=== PATIENT | female | born 1960 | race Caucasian/White ===

== ENCOUNTER 2017-06-16 14:59 | Observation (INO) | payer BC ==
[2017-06-16] MEDS ORDERED: ZOFRAN INJ 4 MG VIAL IVP PRN (15:28)
[2017-06-16 17:02] LABS: BASOPHILS # (AUTO) 0.1 X10^3/uL (0.0-0.1); BASOPHILS % (AUTO) 1.1 % (0.2-1.0); EOSINOPHILS # (AUTO) 0.1 x10^3/uL (0.0-0.2); EOSINOPHILS % (AUTO) 1.7 % (0.9-2.9); HEMATOCRIT 39.8 % (36.0-47.0); HEMOGLOBIN 13.4 g/dL (12.0-16.0); LYMPHOCYTES # (AUTO) 2.2 X10^3/uL (1.3-2.9); LYMPHOCYTES % (AUTO) 27.3 % (21.0-51.0); MEAN CORPUSCULAR HEMOGLOBIN 28.8 pg (27.0-34.0); MEAN CORPUSCULAR HGB CONC 33.7 g/dL (33.0-35.0); MEAN CORPUSCULAR VOLUME 85.5 fL (80.0-100.0); MEAN PLATELET VOLUME 9.7 fL (7.4-11.0); MONOCYTES # (AUTO) 0.4 x10^3/uL (0.3-0.8); MONOCYTES % (AUTO) 4.7 % (0.0-13.0); NEUTROPHILS # (AUTO) 5.3 x10^3/uL (2.2-4.8); NEUTROPHILS % (AUTO) 65.2 % (42.0-75.0); PLATELET COUNT 190 X10^3/uL (150.0-450.0); RED BLOOD COUNT 4.66 X10^6/uL (3.5-5.4); RED CELL DISTRIBUTION WIDTH 13.4 % (11.6-16.5); WHITE BLOOD COUNT 8.2 X10^3/uL (3.6-10.0)
[2017-06-16 17:11] LABS: ALANINE AMINOTRANSFERASE 27 Units/L (12-78); ALBUMIN 3.6 g/dL (3.4-5.0); ALKALINE PHOSPHATASE 171 Units/L (46-116); AMYLASE 35 Units/L (25-115); ASPARTATE AMINO TRANSFERASE 26 Units/L (15-37); BLOOD UREA NITROGEN 10 mg/dL (7-18); CALCIUM 9.3 mg/dL (8.5-10.1); CARBON DIOXIDE 31.4 mmol/L (21-32); CHLORIDE 102 mmol/L (98-107); COR NA(FOR HYPERGLY) 143 mmol/L (136-145); CREATININE 0.76 mg/dL (0.55-1.02); LIPASE 604 Units/L (73-393); SODIUM 142 mmol/L (136-145); TOTAL PROTEIN 7.7 g/dL (6.4-8.2); eGFR BLACK RACES > 60 (>60); eGFR NON BLACK RACES > 60 (>60)
[2017-06-16 17:14] LABS: BILIRUBIN,URINE NEGATIVE (NEGATIVE); BLOOD/HEMOGLOBIN,URINE NEGATIVE (NEGATIVE); GLUCOSE, URINE NEGATIVE (NEGATIVE); KETONES,URINE 2+ (NEGATIVE); LEUKOCYTE ESTERASE ,URINE NEGATIVE (NEGATIVE); NITRITES,URINE NEGATIVE (NEGATIVE); PROTEIN,URINE NEGATIVE (NEGATIVE); UROBILINOGEN,URINE NORMAL (NORMAL)
[2017-06-16 17:18] LABS: APPEARANCE,URINE SLIGHTLY HAZY (CLEAR); COLOR,URINE YELLOW (YELLOW)
[2017-06-16 17:21] LABS: BACTERIA,URINE NEGATIVE /HPF (NEGATIVE); SQUAMOUS EPITHELIAL CELL,UR FEW /HPF (NEGATIVE)
[2017-06-16] MEDS ORDERED: K-LYTE EFFERVESCENT PO PRN (17:41)
[2017-06-16] MEDS ORDERED: POTASSIUM CHLORIDE LIQ 20 MEQ UDC PO PRN (17:41)
[2017-06-16] MEDS ORDERED: K-RIDER 10 MEQ/NS 100 ML 10 MEQ/100 ML BAG IV PRN (17:41)
[2017-06-16] MEDS: PROTONIX INJ 40 MG VIAL IVP SCH ×2 (17:49→20:54)
[2017-06-16] MEDS: NS 1000 ML 1,000 ML IV SCH (17:49)
[2017-06-16 18:35] VITALS: BMI 34.0
[2017-06-17 05:43] LABS: ALANINE AMINOTRANSFERASE 22 Units/L (12-78); ALKALINE PHOSPHATASE 145 Units/L (46-116); ASPARTATE AMINO TRANSFERASE 23 Units/L (15-37); BLOOD UREA NITROGEN 10 mg/dL (7-18); CALCIUM 8.8 mg/dL (8.5-10.1); CARBON DIOXIDE 29.1 mmol/L (21-32); CHLORIDE 104 mmol/L (98-107); COR CA(FOR HYPOALB) 9.6 mg/dL (8.5-10.1); COR NA(FOR HYPERGLY) 143 mmol/L (136-145); CREATININE 0.71 mg/dL (0.55-1.02); MAGNESIUM 1.9 mg/dL (1.7-2.9); SODIUM 141 mmol/L (136-145); TOTAL PROTEIN 6.6 g/dL (6.4-8.2); eGFR BLACK RACES > 60 (>60); eGFR NON BLACK RACES > 60 (>60)
[2017-06-17] MEDS: NS 1000 ML 1,000 ML IV SCH (05:58)
[2017-06-17 05:59] LABS: BASOPHILS # (AUTO) 0.1 X10^3/uL (0.0-0.1); BASOPHILS % (AUTO) 0.9 % (0.2-1.0); EOSINOPHILS # (AUTO) 0.1 x10^3/uL (0.0-0.2); EOSINOPHILS % (AUTO) 2.4 % (0.9-2.9); HEMATOCRIT 36.7 % (36.0-47.0); HEMOGLOBIN 12.2 g/dL (12.0-16.0); LYMPHOCYTES # (AUTO) 1.8 X10^3/uL (1.3-2.9); LYMPHOCYTES % (AUTO) 30.8 % (21.0-51.0); MEAN CORPUSCULAR HEMOGLOBIN 28.8 pg (27.0-34.0); MEAN CORPUSCULAR HGB CONC 33.1 g/dL (33.0-35.0); MEAN CORPUSCULAR VOLUME 87.1 fL (80.0-100.0); MEAN PLATELET VOLUME 9.8 fL (7.4-11.0); MONOCYTES # (AUTO) 0.4 x10^3/uL (0.3-0.8); MONOCYTES % (AUTO) 6.1 % (0.0-13.0); NEUTROPHILS # (AUTO) 3.5 x10^3/uL (2.2-4.8); NEUTROPHILS % (AUTO) 59.8 % (42.0-75.0); PLATELET COUNT 155 X10^3/uL (150.0-450.0); RED BLOOD COUNT 4.22 X10^6/uL (3.5-5.4); RED CELL DISTRIBUTION WIDTH 13.3 % (11.6-16.5); WHITE BLOOD COUNT 5.9 X10^3/uL (3.6-10.0)
[2017-06-17] MEDS: PROTONIX INJ 40 MG VIAL IVP SCH ×2 (08:30→21:30)
--- NOTE | 2017-06-17 09:40 | DR.H&P ---
H&P - History & Physical for Day of: H&P Date: 06/16/17 - Chief Complaint Chief Complaint: ABDOMINAL PAIN, N/V, UNABLE TO EAT - Allergies Allergies/Adverse Reactions: Allergies Allergy/AdvReac Type Severity Reaction Status Date / Time diphenhydramine AdvReac Verified 06/16/17 17:19 [From Benadryl] metformin AdvReac Verified 06/16/17 17:19 - History of Present Illness History of Present Illness: PT IS 57 WF DIRECT ADMIT WITH CO ABDOMINAL FOR APPROX 3 WEEKS WITH SEVERE NAUSEA AND FOOD INTOLERANCE. PT STATES HE WAS SEEN IN [facility] APPROX 3 WEEKS AGO WITH US, SEE REPORT ON CHART. PT HAS PMH OF DM , HTN. DENIES ANY HISTORY OF CAD OR RESP DISEASE. PLAN TO ADMIT FOR CT OF ABD PELVIS WITH CON, NPO FOR EGD. PAIN AND NAUSEA CONTROL. - Past Medical History Past Medical History: Dyslipidemia, GERD, Hypertension - Past Surgical History Surgical History: BATTERY CHECKER Surgery, Hysterectomy, Tonsillectomy - Family History Family Medical History: Cancer, Hypertension - Social History Does patient currently use any type of tobacco product: No (QUTIE 17 YRS AGO) Have you used tobacco products in the last 12 months: No Type of Tobacco Use: Cigarettes How many years tobacco product used: 30 Does any household member use tobacco: No Alcohol Use: None Drug Use: None - Medications Home Medications: Glimepiride [AMARYL 4 MG *] 1 tab PO BID 06/16/17 [History Confirmed 06/16/17] Lisinopril 1 tab PO DAILY 06/16/17 [History Confirmed 06/16/17] Pravastatin Sodium 1 tab PO HS 06/16/17 [History Confirmed 06/16/17] - Review of Systems Constitutional: Weakness Eyes: No Symptoms Reported ENT: No Symptoms Reported Respiratory: No Symptoms Reported Cardiovascular: No Symptoms Reported Gastrointestinal: Nausea, Vomiting, Abdominal Pain Genitourinary: No Symptoms Reported Musculoskeletal: No Symptoms Reported Skin: No Symptoms Reported Neurological: No Symptoms Reported - Physical Exam Vital Signs: Temperature 97.9 F Pulse Rate [Right Brachial] 70 Pulse Rate [Left Radial] 83 Respiratory Rate 20 Blood Pressure [Right Arm] 149/74 O2 Sat by Pulse Oximetry 97 Oriented: Normal Eyes: Normal Ear: Normal Nose: Normal Throat: Normal Respiratory: RLL Diminished, LLL Diminished Cardiovascular: Normal : Normal Auscultation: Bowel Sounds: Increased Palpation: Liver Enlarged Tenderness: RUQ, Epigastric Skin: Decreased Turgur Musculoskeletal: Normal Psychiatric: Normal Speech Pattern: Clear, Appropriate - Assessment/Plan (1) Abdominal pain Status: Acute Plan: PT ADMITTED FOR FURTHER EVALUATION FOR ABNORMAL LIVER US. PLAN TO OBTAIN CT ABD AND PELVIS WITH CONTRAST. CONTINUE BS CONTROL, IV HYDRATION. PAIN AND NAUSEA CONTROL. PT NPO. RESUME HTN MEDICATION (2) RUQ abdominal pain Status: Acute (3) Epigastric abdominal tenderness Status: Acute (4) Abnormal liver diagnostic imaging Status: Acute
[2017-06-17] MEDS ORDERED: ZOFRAN INJ 4 MG VIAL 16 MG, ATIVAN INJ 2 MG VIAL 1 MG in NS 50 ML IV 50 ML IV ONE (09:51)
--- NOTE | 2017-06-17 10:16 | RAD ---
Examination: Portable AP chest History: Diminished lung sounds Findings: Normal heart size with clear lungs and pleural spaces. There is no evidence for consolidati on, pulmonary edema or large pleural effusion. Impression: No acute process demonstrated. Reported By:
[2017-06-17] MEDS ORDERED: NS 1000 ML 1,000 ML ONE (10:42)
[2017-06-17 12:22] LABS: AMYLASE 17 Units/L (25-115); LIPASE 174 Units/L (73-393)
[2017-06-17] MEDS ORDERED: POTASSIUM CHL 40 MEQ/NS 0.45% 500 ML 40 MEQ/500 ML BAG IV PRN (13:46)
[2017-06-17] MEDS ORDERED: POTASSIUM CHL 60 MEQ/NS 0.45% 500 ML 60 MEQ/500 ML BAG IV PRN (13:46)
[2017-06-17] MEDS ORDERED: DIPRIVAN VIAL 20 ML ONE (15:16)
[2017-06-17] MEDS ORDERED: XYLOCAINE 2 % (PLAIN) ONE (15:16)
[2017-06-17] MEDS ORDERED: NS 100 ML IV 100 ML IV ONE (17:52)
[2017-06-17] MEDS: DILAUDID INJ IVP PRN (19:07)
[2017-06-17] MEDS: HumuLIN R SC PRN (21:33)
--- NOTE | 2017-06-17 22:45 | CT ---
CT abdomen and pelvis with contrast Indication: Right upper quadrant abdominal pain Technique: Helical CT images of the abdomen and pelvis were obtained with IV contrast. Reformatted im ages in the coronal and sagittal planes were also generated for review. Comparison: None Findings: The visualized lung bases are clear. No aggressive osseous lesions are identified. There is a hypoattenuating 3.0 x 4.6 cm mass within the pancreatic tail (image 31, series 4), suspici ous for malignancy. There is mild atrophy of the remaining pancreas without associated pancreatic jaime keena dilatation. There are multiple hypoattenuating lesions throughout the liver, measuring up to 3.9 cm, concerning for metastases. The spleen, adrenals and kidneys are unremarkable. The appendix is not identified, although no pericecal inflammation is present to suggest acute append icitis. The remaining GI tract is unremarkable. The abdominal aorta is mildly calcified without aneur ysm. The urinary bladder is normal. The patient is post hysterectomy. A small fat containing periumbi lical hernia is noted. There is trace free fluid within the bilateral pericolic gutters. No significa nt free flowing ascites or free air is identified. Several mildly enlarged periportal lymph nodes are present. For future reference, a pericaval node measures 1.3 cm in short axis on axial image 27, ser ies 4. 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 Multiple hypoattenuating hepatic lesions are most compatible with metastatic disease. Mild periportal adenopathy, also suspicious for metastatic disease. Small fat containing periumbilical hernia and additional incidental findings, as above. Reported By:
[2017-06-18] MEDS: DILAUDID INJ IVP PRN (05:07)
[2017-06-18] MEDS: NS 1000 ML 1,000 ML IV SCH ×2 (05:09→11:33)
[2017-06-18 06:09] LABS: BASOPHILS # (AUTO) 0.1 X10^3/uL (0.0-0.1); BASOPHILS % (AUTO) 0.9 % (0.2-1.0); EOSINOPHILS # (AUTO) 0.2 x10^3/uL (0.0-0.2); EOSINOPHILS % (AUTO) 2.5 % (0.9-2.9); HEMATOCRIT 36.1 % (36.0-47.0); LYMPHOCYTES # (AUTO) 1.3 X10^3/uL (1.3-2.9); LYMPHOCYTES % (AUTO) 18.6 % (21.0-51.0); MEAN CORPUSCULAR HEMOGLOBIN 28.8 pg (27.0-34.0); MEAN CORPUSCULAR HGB CONC 33.4 g/dL (33.0-35.0); MEAN CORPUSCULAR VOLUME 86.3 fL (80.0-100.0); MEAN PLATELET VOLUME 9.6 fL (7.4-11.0); MONOCYTES # (AUTO) 0.3 x10^3/uL (0.3-0.8); MONOCYTES % (AUTO) 4.9 % (0.0-13.0); NEUTROPHILS # (AUTO) 5.2 x10^3/uL (2.2-4.8); NEUTROPHILS % (AUTO) 73.1 % (42.0-75.0); PLATELET COUNT 173 X10^3/uL (150.0-450.0); RED BLOOD COUNT 4.18 X10^6/uL (3.5-5.4); RED CELL DISTRIBUTION WIDTH 13.6 % (11.6-16.5); WHITE BLOOD COUNT 7.1 X10^3/uL (3.6-10.0)
[2017-06-18 06:24] LABS: ALANINE AMINOTRANSFERASE 21 Units/L (12-78); ALBUMIN 3.1 g/dL (3.4-5.0); ALKALINE PHOSPHATASE 136 Units/L (46-116); ASPARTATE AMINO TRANSFERASE 31 Units/L (15-37); BLOOD UREA NITROGEN 9 mg/dL (7-18); CALCIUM 8.5 mg/dL (8.5-10.1); CARBON DIOXIDE 29.9 mmol/L (21-32); CHLORIDE 105 mmol/L (98-107); COR CA(FOR HYPOALB) 9.2 mg/dL (8.5-10.1); COR NA(FOR HYPERGLY) 143 mmol/L (136-145); CREATININE 0.71 mg/dL (0.55-1.02); SODIUM 141 mmol/L (136-145); TOTAL PROTEIN 6.8 g/dL (6.4-8.2); eGFR BLACK RACES > 60 (>60); eGFR NON BLACK RACES > 60 (>60)
[2017-06-18] MEDS: HumuLIN R SC PRN ×2 (06:25→06:27)
[2017-06-18] MEDS: PROTONIX INJ 40 MG VIAL IVP SCH (09:41)
[2017-06-18 12:21] VITALS: BP 145/60
== END 2017-06-18 17:30 | disposition home or self-care (01) ==
LOC: MED/SURG 14:59 → UNDOADMOB 14:59 → MED/SURG 15:43
PROVIDERS: ADMIT Internal Medicine; ATTEND Internal Medicine
PROC: 0DB68ZX Excision of Stomach, Via Natural or Artificial Opening Endoscopic, Diagnostic (ICD-10-PCS; principal; 2017-06-17 15:00)
DX: C25.2 Malignant neoplasm of tail of pancreas (principal); C78.7 Secondary malignant neoplasm of liver and intrahepatic bile duct; R10.84 Generalized abdominal pain; R11.2 Nausea with vomiting, unspecified; E11.65 Type 2 diabetes mellitus with hyperglycemia; I10 Essential (primary) hypertension; B96.1 Klebsiella pneumoniae [K. pneumoniae] as the cause of diseases classified elsewhere; E78.2 Mixed hyperlipidemia; K21.9 Gastro-esophageal reflux disease without esophagitis; R10.11 Right upper quadrant pain; R74.8 Abnormal levels of other serum enzymes; E87.5 Hyperkalemia; K29.00 Acute gastritis without bleeding; K44.9 Diaphragmatic hernia without obstruction or gangrene; K20.8 Other esophagitis
CPT/HCPCS: 36415; 71010; 74177; 80053; 81001; 82150; 82378; 83690; 83735; 85025; 86316; 87086; 87088; 87186; 93005; 93010; A4222; C9113; A4217; G0378; J1815; J2001; J2405; J3490